=== PATIENT | male | born 1945 | race Caucasian/White ===

== ENCOUNTER 2017-05-28 21:05 | Emergency (ER) | payer OTHER ==
[~2017-05-28] VITALS: Ht 190.5 cm; Wt 85.9 kg
[2017-05-28 21:21] VITALS: TEMP 36.6; Ht 190.5 cm; Wt 85.9 kg
[2017-05-28] MEDS ORDERED: GLUCTAB7 PO (22:01)
[2017-05-28] MEDS ORDERED: ASPI81TA28 PO (22:01)
[2017-05-28] MEDS ORDERED: ATOR-24 PO (22:01)
[2017-05-28] MEDS ORDERED: LIDO/EPINEPHRINE/SOD BICARB 20 ML VIAL INFIL ONE (22:47)
[2017-05-28] MEDS ORDERED: DIPHTHERIA/TETANUS/PERTUSSIS 0.5 ML SYR/VIAL IM. ONE (23:00)
[2017-05-28] MEDS ORDERED: XYLOCAINE 1%/SOD BICARB 20 ML VIAL INFIL ONE (23:00)
[2017-05-28] MEDS ORDERED: CEPH500C PO (23:43)
[2017-05-28] MEDS ORDERED: CEPHALEXIN 500MG HOME PACK 1 EA BTL PO ONE (23:45)
[2017-05-29 00:03] VITALS: BP 129/74; PULSE 63; O2SAT 97
--- NOTE | 2017-05-29 05:39 | EMERGENCY ROOM VISIT NOTE ---
ED Visit Note First contact with patient: 22:50 CHIEF COMPLAINT: Finger laceration HISTORY OF PRESENT ILLNESS: This 72-year-old male patient presents to the emergency department after cutting the right second finger about one hour ago. The patient was walking his dog, when the dog began to run, pulling the leash. There was a metal attachment on the leash which caused the laceration to the patient's hand. The bleeding has stopped. Denies weakness or numbness of the finger. The patient has full range of motion of the fingers. The patient rates the pain as dull and 6/10. The patient denies any other injuries. The patient' s tetanus shot is not up to date. REVIEW OF SYSTEMS: A 6 system review of systems was completed with positives and pertinent negatives listed in the HPI. ALLERGIES: Oxycodone MEDICATIONS: See EMR PMH: No pertinent chronic medical disease SOCIAL HISTORY: Lives in [place] with family. Is visiting locally PHYSICAL EXAM: Vital Signs: Reviewed Nurse's notes, vital signs stable. GENERAL : White male, in no acute distress, well developed, well nourished. SKIN: There is a V-shaped 5.0 cm long laceration on the palmar aspect of the right second finger. The edges gape apart with traction. There is no foreign material in the wound and it looks clean. There is no significant bleeding. No deep structures such as bones, or significant blood vessels are seen in the base of the wound. The flexor tendon is easily identified however, and this appears without laceration Extension and flexion of the finger is full and strong. Full range of motion of the wrist and other fingers. Capillary refill less than 2 seconds. Normal sensation to light and sharp touch. EMERGENCY DEPARTMENT COURSE: I examined the patient. Verbal consent was obtained to perform the procedure. Using sterile technique the wound was cleansed with Betadine. 5 ml of 1% buffered lidocaine was used to perform a digital block to anesthetize the patient. The area was sterilely draped. Once the patient was anesthetized, the wound was copiously irrigated under pressure with sterile saline. The wound was explored and there were no deep structures injured. The laceration was repaired using 6 simple interrupted 5-0 nylon sutures. The patient tolerated the procedure well. Hemostasis was achieved. The area was cleaned with sterile saline and dressed with bacitracin ointment and bandage. The patient was given a tetanus booster. The patient was discharged home with a course of Keflex. He will need to follow with orthopedics back home regarding the exposed tendon, however again the tendon is not with laceration. Current/Historical Medications Scheduled Aspirin (Aspirin Ec), 81 MG PO DAILY Atorvastatin (Lipitor), 1 TAB PO HS Cephalexin Monohydrate (Keflex), 500 MG PO TID [id number]-[id number] C- (Glucosamine Chondroitin), 1 TAB PO QAM Allergies Coded Allergies: Oxycodone (Unverified Allergy, Unknown, RASH, 05/28/17) Patient states he gets itchy with a medication that ends in "-codone," he belives that it is oxycodone. Vital Signs Date Time Temp Pulse Resp B/P (MAP) Pulse Ox O2 Delivery O2 Flow Rate FiO2 05/29/17 00:03 63 129/74 97 05/28/17 21:21 36.6 77 18 135/75 96 Room Air Medications Administered Medications (Trade) Dose Ordered Sig/Sarwat Route Start Time Stop Time Status Last Admin Dose Admin Lidocaine/ Epinephrine (Buffered Xylocaine/ Epinephrine 1% Inj) 20 ml STK-MED ONCE INFIL 05/28/17 22:47 05/28/17 22:57 DC 05/28/17 22:48 20 ML Diphtheria/ Pertussis/Tetanus Vacc (Adacel Inj) 0.5 ml ONCE ONCE IM. 05/28/17 23:00 05/28/17 23:01 DC 05/28/17 23:50 0.5 ML Lidocaine HCl (Buffered Lidocaine 1% Inj) 20 ml NOW ONCE INFIL 05/28/17 23:00 05/28/17 23:01 DC 05/28/17 23:11 20 ML Cephalexin Monohydrate (Keflex 500MG Home Pack) 1 homepack NOW ONCE PO 05/28/17 23:45 05/28/17 23:46 DC 05/28/17 23:49 1 HOMEPACK Departure Information Impression Primary Impression: Laceration of finger Dispostion Home / Self-Care Condition GOOD Prescriptions Cephalexin Monohydrate (Keflex) 500 Mg Cap 500 MG PO TID for 7 Days, #21 CAP Prov: Gary Jean PA-C 05/28/17 Forms HOME CARE DOCUMENTATION FORM, IMPORTANT VISIT INFORMATION Patient Instructions My [facility] Additional Instructions You were seen and evaluated today on an emergency basis only. This is not a substitute for, or an effort to provide, complete comprehensive medical care. It is not possible to recognize and treat all injuries or illnesses in a single emergency department visit. For this reason it is recommended that you followup with your orthopedist upon returning home next week for ongoing care and evaluation. Call in the morning to make an appointment. Wear your metal finger splint until otherwise cleared by orthopedics. Cephalexin(Keflex) 500mg: Take one pill 3 times daily for 7 days to prevent infection. All antibiotics can cause diarrhea. If this occurs and you feel worse or it does not resolve in 1-2 days follow up with your doctor or return to the Emergency Department as this could be signs of serious underlying problems. Any medication can cause an allergic reaction, stop the pills immediately and return to the ER for rash, hives, breathing difficulties, or swelling. Keep wound clean and dry. Do not allow any crusting or dried blood to accumulate on sutures. If this occurs, use a mild soap/water on a Q-tip to clean the wound. Do not use Peroxide to clean the wound as this can delay healing Use an antibiotic ointment like Bacitracin for 3-4 days, then let wound dry. You may bathe and shower as normal, but DO NOT SOAK the wound. Suture removal in about 8-10 days with your Family Doctor or in the ER. Return sooner for any signs of infection, increasing redness, swelling, or drainage. You are welcome to return to the emergency department anytime with new, worsening, or concerning symptoms.
== END 2017-05-29 00:04 | disposition home or self-care (01) ==
LOC: C.EDB 21:07 → C.EDC 05-29 00:04
DX: S61.210A Laceration without foreign body of right index finger without damage to nail, initial encounter (principal); Y93.K1 Activity, walking an animal; W45.8XXA Other foreign body or object entering through skin, initial encounter; Z79.82 Long term (current) use of aspirin; Z79.899 Other long term (current) drug therapy; Z23 Encounter for immunization